=== PATIENT | male | born 2000 | race African-American/Black ===

== ENCOUNTER 2021-11-09 12:39 | Emergency (ER) | payer BC, SELFPAY ==
[2021-11-09 12:59] VITALS: BP 125/78; BP 164/86; PULSE 116; PULSE 58; RESP 18; RESP 20; TEMP 36; TEMP 37.4; O2SAT 100; O2SAT 98; BMI 26.5
--- NOTE | 2021-11-09 13:52 | ED_ITS ---
HPI - Psych General Time Seen by Provider: 13:30 Date Seen: 11/09/21 Chief Complaint: Psychiatric Problem/Disorder Stated Complaint: Mental Health Time Seen by Provider: 11/09/21 13:21 Source: patient, family (Did speak to parents on patient's phone with his permission), RN notes reviewed and old records reviewed Mode of arrival: other (Public safety from [facility]) Limitations: altered mental status History of Present Illness HPI Narrative: Patient is a 21-year-old male that was brought in by Public safety from [facility]. I later learned after talking to his mom on the phone from which the patient handed me that she had called his work ahead of time telling them that he needed to be evaluated in the emergency room. She states she was tamiko deondre to him all weekend long and he was cycling. She could not get him to go get help. His parents are in [place] and he has been here at [facility] at [place]. 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 He was seen in our ER on 04/26/2021 and there was concern of mental health issues at that time, somebody had told him he was bipolar, he was complaining of insomnia. They had an outpatient plan for him. With suspected at that time he was manic or possibly posttraumatic with anxiety. He had significant social flares. At this time he is asking questions with 2 parts to home. For example he will ask do I need a therapist or do I needed dog. He continues to speak like that in its tangential thoughts. He goes and lies up on the counter, lies on the floor. He only wants and he are patient safety sitter and myself in the room at times. He thinks that is teaching in is offering to [facility]. He keeps asking if his phone was charged. He toxin forms of asking questions with the ability to answer 1 of 2 ways. Such as should he get a dog or should he have a therapist, is is phone charged or is not. He talks about his mom not being in healthcare person. He talks about his mom having social anxiety and separation anxiety. I cannot decipher from him if he is hearing voices or hearing things. Cannot get him to answer few suicidal or homicidal but certainly does not seem to be. He is up and agitated moving about the room moving equipment. Heme on lacks the bed and is costing around the room on it. We did get him to put the bed up against the wall where he wanted an got him to put the safety lock back on it. We are not unsafe with him but he is obviously manic/possible psychosis. His mom did remember this bowel in April but is unclear if he has been diagnosed with anything or fees on any chronic psychiatric medications. She does relate to me that she has multiple brothers with bipolar disorder. Patient initially refused to let me examine him or do any blood work/obtain urine. He later did let me examine him before medication. Did not attempt any of the blood work or urine until he had been medicated. MD complaint: altered mental status Onset (ago): unknown Related Data Home Medications Medication Instructions Recorded Confirmed escitalopram oxalate 10 mg tablet 20 mg PO DAILY 11/09/21 11/09/21 hydroxyzine pamoate 25 mg capsule 25 mg PO DAILY 11/09/21 11/09/21 Allergies Allergy/AdvReac Type Severity Reaction Status Date / Time No Known Drug Allergies Allergy Verified 11/09/21 13:09 Review of Systems Status of ROS: Reports: unobtainable due to medical condition and unobtainable due to mental status Exam Const: Vital Signs, click to edit/add: Vital Signs - 24 hr 11/09/21 12:59 11/09/21 16:20 Temperature 99.3 F Pulse Rate [Right Pulse Oximeter] 116 H 58 L Respiratory Rate 20 16 Blood Pressure [Ri ght Upper Arm] 164/86 H Pulse Oximetry 98 96 Documenting provider has reviewed patient's vital signs: yes Common normals: healthy appearing and alert Exam limitations: altered mental status General appearance: well kempt HENMT: Common normals: normocephalic, head/scalp atraumatic, hearing grossly normal bilaterally, external ears normal and external nose normal Head and scalp: normocephalic and atraumatic Nose: external nose normal External ear: external ears normal Eye: Common normals: PERRL, EOMs intact bilaterally, conjunctivae normal and no scleral icterus Conjunctiva: conjunctiva(e) normal Pupil: PERRL Neck & C-Spine: Common normals: full ROM, no lymphadenopathy, supple, no JVD and thyroid normal Thyroid: thyroid normal Resp: Common normals: normal respiratory effort, no retractions, no use of accessory muscles and clear to auscultation bilaterally Auscultation: clear to auscultation bilaterally Cardio: Common normals: no JVD, regular rate, regular rhythm, S1 normal heart sound, S2 normal heart sound, no gallops, no clicks and no murmurs Rate: regular rate Rhythm: regular rhythm Heart sounds: S1 normal and S2 normal Neuro: Sensorium/orientation: alert Psych: Appearance: well kempt Attitude: bizarre (Line on counter, lying on floor) and agitated Activity/motor behavior: psychomotor agitation (Continually moving about the room, changing positions), hyperactive, disorganized and restless Speech: excessive, rapid and other (Speaks in form of questions only) Thought process: disorganized, illogical, tangential and racing thoughts Thought content: other (Just talking mostly in the form of asking questions, not making sense) Insight: poor Judgement: poor Skin: Common normals: no rashes or lesions noted General skin exam: no rashes or lesions noted Course Reevaluation(s) Reevaluation #1: Security came to get me is patient called to see me. When I went in he asked what I wanted. His speech is still tangential he asks questions and then as usual the questions will have in either or that you have to pick. He is talking nonsensically he is lying on the floor when I go in to see him. Speech is pressured. We are waiting the oral Ativan and oral olanzapine from pharmacy. Hopefully he will take those or a fear we may have to try to inject IM. Patient is obviously in a psychotic state. He will need hospitalization. Time: 13:55 Reevaluation #2: Was able to talk the patient into taking the Ativan and the Zyprexa. He took these orally with water, observed him to take them and swallow them. It took about an hour for them to take affect. When patient was talking to his mom it seemed to agitate him a bit more an I did remove his phone from the room as I was talking to his parents. He seemed to tolerate that fine. Short while later I was planning on giving him some Ativan/Haldol/Benadryl. His parents were aware of the plan they understood that he is going to need psychiatric hospitalization which they highly agree with. When I was back in preparing to help staff give him the injections he seemed to be tiring out a bit, speech becoming little slower. He agreed that he would allow blood work and would give us urinalysis. He did do so and we never had to do the Ativan/Benadryl/Haldol. He did fall asleep with the oral Ativan and Zyprexa that were given earlier. He will need psychiatric hospitalization. Have put a consult in for tele health. Time: 14:15 Consultations Consultation #1: Spoke with telehealth, they agree that this gentleman is psychiatrically quite ill. She cannot get suicidality or homicidality out of him but he is quite ill and is either manic or psychotic. Time: 18:30 Vital Signs Vital signs: Initial Vital Signs Temperature 99.3 F 11/09/21 12:59 Temperature Source Temporal Artery Scan 11/09/21 12:59 Pulse Rate 116 H 11/09/21 12:59 Pulse Rhythm 11/09/21 12:59 Respiratory Rate 20 11/09/21 12:59 Blood Pressure 164/86 H 11/09/21 12:59 Blood Pressure Mean 112 11/09/21 12:59 Blood Pressure Position Sitting 11/09/21 12:59 Pulse Oximetry 98 11/09/21 12:59 Oxygen Delivery Method 11/09/21 12:59 Vital Signs Temperature 99.3 F 11/09/21 12:59 Pulse Rate 116 H 11/09/21 12:59 Respiratory Rate 20 11/09/21 12:59 Blood Pressure 164/86 H 11/09/21 12:59 Pulse Oximetry 98 11/09/21 12:59 Temperature 99.3 F 11/09/21 12:59 Pulse Rate 58 L 11/09/21 16:20 Respiratory Rate 16 11/09/21 16:20 Blood Pressure 164/86 H 11/09/21 12:59 Pulse Oximetry 96 11/09/21 16:20 MDM - Psych Lab Data Attestation: I reviewed the patient's lab results. Labs: Lab Results 11/09/21 11/09/21 11/09/21 Range/Units 14:52 15:20 15:21 WBC 8.16 (4.50-11.00) K/uL RBC 5.52 (4.30-5.90) m/uL Hgb 16.6 (13.5-17.5) gm/dL Hct 47.1 (37.0-53.0) % MCV 85 (80-100) fL MCH 30 (26-34) pg MCHC 35 (32-36) gm/dL RDW Coeff of Aria 12.1 (11.5-15.5) % Plt Count 259 (140-440) K/uL Neut % (Auto) 67.9 (42.0-72.0) % Lymph % (Auto) 22.9 (20-44) % [place] % (Auto) 8.6 (0.0-11.0) % Eos % (Auto) 0.1 (0.0-7.0) % Baso % (Auto) 0.4 (0.0-3.0) % Neut # (Auto) 5.54 (1.7-7.0) K/uL Lymph # (Auto) 1.87 (0.90-2.90) K/uL [place] # (Auto) 0.70 (0.00-0.90) K/UL Eos # (Auto) 0.01 (0.00-0.50) K/uL Baso # (Auto) 0.03 (0.00-0.30) K/uL Abs Immat Gran (auto) 0.01 (0.00-0.30) K/uL Sodium (135-149) mmol/L Potassium (3.6-5.1) mmol/L Chloride (96-114) mmol/L Carbon Dioxide (20-32) mmol/L BUN (5-24) mg/dL Creatinine (0.5-1.5) mg/dL Estimated Creat Clear Estimated GFR ml/min Glucose (60-115) mg/dL Calcium (8.4-10.6) mg/dL Total Bilirubin (0.1-1.5) mg/dL AST (12-35) U/L ALT (4-50) U/L Alkaline Phosphatase (40-150) U/L Total Protein (6.0-8.3) g/dL Albumin (3.3-5.0) g/dL TSH (0.270-4.200) uIU/mL Salicylates (1.0-10) mg/dL Urine Opiates Screen Negative (Negative) Ur Oxycodone Screen Negative (Negative) Urine Methadone Screen Negative (Negative) Ur Propoxyphene Screen Negative (Negative) Acetaminophen (10.0-30.0) ug/mL Ur Barbiturates Screen Negative (Negative) U Tricyclic Antidepress Negative (Negative) Ur Phencyclidine Scrn Negative (Negative) Ur Amphetamines Screen Negative (Negative) U Methamphetamines Scrn Negative (Negative) U Benzodiazepines Scrn Negative (Negative) Urine Cocaine Screen Negative (Negative) U Marijuana (THC) Screen Negative (Negative) Ur Drug Screen Comment See Note Ethyl Alcohol (0.01-0.03) % SARS-CoV-2 (PCR) Negative SARS-CoV-2 (Negative) HIV 1&2 Ab/P24 Ag 4thGn (Negative) 11/09/21 11/09/21 11/09/21 Range/Units 15:21 15:21 15:21 WBC (4.50-11.00) K/uL RBC (4.30-5.90) m/uL Hgb (13.5-17.5) gm/dL Hct (37.0-53.0) % MCV (80-100) fL MCH (26-34) pg MCHC (32-36) gm/dL RDW Coeff of Aria (11.5-15.5) % Plt Count (140-440) K/uL Neut % (Auto) (42.0-72.0) % Lymph % (Auto) (20-44) % [place] % (Auto) (0.0-11.0) % Eos % (Auto) (0.0-7.0) % Baso % (Auto) (0.0-3.0) % Neut # (Auto) (1.7-7.0) K/uL Lymph # (Auto) (0.90-2.90) K/uL [place] # (Auto) (0.00-0.90) K/UL Eos # (Auto) (0.00-0.50) K/uL Baso # (Auto) (0.00-0.30) K/uL Abs Immat Gran (auto) (0.00-0.30) K/uL Sodium 139 (135-149) mmol/L Potassium 3.7 (3.6-5.1) mmol/L Chloride 102 (96-114) mmol/L Carbon Dioxide 27 (20-32) mmol/L BUN 16 (5-24) mg/dL Creatinine 1.1 (0.5-1.5) mg/dL Estimated Creat Clear 108.76 Estimated GFR 97 ml/min Glucose 112 (60-115) mg/dL Calcium 9.5 (8.4-10.6) mg/dL Total Bilirubin 0.7 (0.1-1.5) mg/dL AST 28 (12-35) U/L ALT 24 (4-50) U/L Alkaline Phosphatase 81 (40-150) U/L Total Protein 8.4 H (6.0-8.3) g/dL Albumin 5.0 (3.3-5.0) g/dL TSH 1.810 (0.270-4.200) uIU/mL Salicylates < 1.0 L (1.0-10) mg/dL Urine Opiates Screen (Negative) Ur Oxycodone Screen (Negative) Urine Methadone Screen (Negative) Ur Propoxyphene Screen (Negative) Acetaminophen < 10.0 L (10.0-30.0) ug/mL Ur Barbiturates Screen (Negative) U Tricyclic Antidepress (Negative) Ur Phencyclidine Scrn (Negative) Ur Amphetamines Screen (Negative) U Methamphetamines Scrn (Negative) U Benzodiazepines Scrn (Negative) Urine Cocaine Screen (Negative) U Marijuana (THC) Screen (Negative) Ur Drug Screen Comment Ethyl Alcohol < 0.01 L (0.01-0.03) % SARS-CoV-2 (PCR) (Negative) HIV 1&2 Ab/P24 Ag 4thGn (Negative) 11/09/21 Range/Units 15:21 WBC (4.50-11.00) K/uL RBC (4.30-5.90) m/uL Hgb (13.5-17.5) gm/dL Hct (37.0-53.0) % MCV (80-100) fL MCH (26-34) pg MCHC (32-36) gm/dL RDW Coeff of Aria (11.5-15.5) % Plt Count (140-440) K/uL Neut % (Auto) (42.0-72.0) % Lymph % (Auto) (20-44) % [place] % (Auto) (0.0-11.0) % Eos % (Auto) (0.0-7.0) % Baso % (Auto) (0.0-3.0) % Neut # (Auto) (1.7-7.0) K/uL Lymph # (Auto) (0.90-2.90) K/uL [place] # (Auto) (0.00-0.90) K/UL Eos # (Auto) (0.00-0.50) K/uL Baso # (Auto) (0.00-0.30) K/uL Abs Immat Gran (auto) (0.00-0.30) K/uL Sodium (135-149) mmol/L Potassium (3.6-5.1) mmol/L Chloride (96-114) mmol/L Carbon Dioxide (20-32) mmol/L BUN (5-24) mg/dL Creatinine (0.5-1.5) mg/dL Estimated Creat Clear Estimated GFR ml/min Glucose (60-115) mg/dL Calcium (8.4-10.6) mg/dL Total Bilirubin (0.1-1.5) mg/dL AST (12-35) U/L ALT (4-50) U/L Alkaline Phosphatase (40-150) U/L Total Protein (6.0-8.3) g/dL Albumin (3.3-5.0) g/dL TSH (0.270-4.200) uIU/mL Salicylates (1.0-10) mg/dL Urine Opiates Screen (Negative) Ur Oxycodone Screen (Negative) Urine Methadone Screen (Negative) Ur Propoxyphene Screen (Negative) Acetaminophen (10.0-30.0) ug/mL Ur Barbiturates Screen (Negative) U Tricyclic Antidepress (Negative) Ur Phencyclidine Scrn (Negative) Ur Amphetamines Screen (Negative) U Methamphetamines Scrn (Negative) U Benzodiazepines Scrn (Negative) Urine Cocaine Screen (Negative) U Marijuana (THC) Screen (Negative) Ur Drug Screen Comment Ethyl Alcohol (0.01-0.03) % SARS-CoV-2 (PCR) (Negative) HIV 1&2 Ab/P24 Ag 4thGn Negative (Negative) Critical Care Time Critical Care Time Critical Care Time: No Discharge Plan Discharge Clinical Impression: Acute psychosis Patient Disposition: Xfer Psychiatric Hosp Condition: Unchanged Prescriptions: No Action hydroxyzine pamoate 25 mg capsule 25 mg PO DAILY 0RF Label Comments: TAKE 1 TO 2 CAPSULES BY MOUTH EVERY 4 TO 6 HOURS NEEDED FOR ANXIETY escitalopram oxalate 10 mg tablet 20 mg PO DAILY 0RF Label Comments: TAKE 1 TABLET BY MOUTH DAILY Follow Up/Referrals: Provider,Not a Local [Primary Care Provider] - Stand Alone Forms: [employer] Info Instructions
[2021-11-09] MEDS: LORazepam 1 MG TABLET PO (14:15)
[2021-11-09] MEDS: OLANZapine 5 MG TAB.RAPDIS 10 MG PO (14:16)
--- NOTE | 2021-11-09 14:17 | ED.NURSE ---
Pt given 10 mg of Zyprexa po and 1 mg of Ativan po.
[2021-11-09 15:28] LABS: Basophils Absolute Auto 0.03 K/uL (0.00-0.30); Basophils Percent Auto 0.4 % (0.0-3.0); Eosinophils Absolute Auto 0.01 K/uL (0.00-0.50); Eosinophils Percent Auto 0.1 % (0.0-7.0); Hematocrit 47.1 % (37.0-53.0); Hemoglobin* 16.6 gm/dL (13.5-17.5); Immature Granulocytes Abs Auto 0.01 K/uL (0.00-0.30); Lymphocytes Absolute Auto 1.87 K/uL (0.90-2.90); Lymphocytes Percent Auto 22.9 % (20-44); Mean Corpuscular HGB Conc 35 gm/dL (32-36); Mean Corpuscular Hemoglobin 30 pg (26-34); Mean Corpuscular Volume 85 fL (80-100); Monocytes Percent Auto 8.6 % (0.0-11.0); Neutrophils Absolute Auto 5.54 K/uL (1.7-7.0); Neutrophils Percent Auto 67.9 % (42.0-72.0); Platelet Count* 259 K/uL (140-440); RDW Coefficient of Variation % 12.1 % (11.5-15.5); Red Blood Count 5.52 m/uL (4.30-5.90); White Blood Count* 8.16 K/uL (4.50-11.00)
[2021-11-09 15:33] LABS: Slide Review Reflex No
[2021-11-09 15:41] LABS: Chloride* 102 mmol/L (96-114)
[2021-11-09 15:42] LABS: Potassium* 3.7 mmol/L (3.6-5.1); Sodium* 139 mmol/L (135-149)
[2021-11-09 15:44] LABS: Alanine Aminotransferase* 24 U/L (4-50); Alkaline Phosphatase* 81 U/L (40-150); Aspartate Amino Transferase* 28 U/L (12-35); Bilirubin Total* 0.7 mg/dL (0.1-1.5); Blood Urea Nitrogen* 16 mg/dL (5-24); Carbon Dioxide* 27 mmol/L (20-32); Creatinine* 1.1 mg/dL (0.5-1.5); Est. Creatinine Clearance* 108.76; Estimated Glomerular Filt Rate 97 ml/min; Glucose* 112 mg/dL (60-115); Total Protein* 8.4 g/dL (6.0-8.3)
[2021-11-09 15:45] LABS: Calcium* 9.5 mg/dL (8.4-10.6)
[2021-11-09 15:46] LABS: Acetaminophen* < 10.0 ug/mL (10.0-30.0); Ethanol* < 0.01 % (0.01-0.03); Salicylate* < 1.0 mg/dL (1.0-10)
[2021-11-09 15:50] LABS: Amphetamine Screen Urine Negative (Negative); Barbiturate Screen Urine Negative (Negative); Benzodiazepines Screen Urine Negative (Negative); Cannabinoid Screen Urine Negative (Negative); Cocaine Screen Urine Negative (Negative); Methadone Screen Urine Negative (Negative); Methamphetamines Screen Urine Negative (Negative); Opiate Screen Urine Negative (Negative); Oxycodone Screen Urine Negative (Negative); Phencyclidine Screen Urine Negative (Negative); Tricyclic Antidepressant Urine Negative (Negative)
[2021-11-09 16:20] VITALS: PULSE 58; RESP 16; O2SAT 96
--- NOTE | 2021-11-09 16:28 | ED.NURSE ---
dr ac informed that the dec assessment will be done in 1 hour. she is aware that many of the assessments are not done due to his manic phase and inability to answer questions with his agitated type behavior and his need to sleep.
[2021-11-09 16:40] LABS: SARS PCR* Negative SARS-CoV-2 (Negative)
[2021-11-09 17:26] LABS: HIV 1/2/P24 Combo Screen* Negative (Negative)
--- NOTE | 2021-11-09 17:53 | ED.NURSE ---
is speaking to dec quality control assessor via phone, lesly. has flight of ideas. I need a service dog. i need to go home. i can't see. will not answer yes or no questions. very difficult to get assessments done.
--- NOTE | 2021-11-09 21:05 | PC.SOCIAL ---
Called [facility] placement at [phone]. Provided initial information by phone and faxed referral packet for evaluation for admit. Requested call back to RN with decision on admit.
--- NOTE | 2021-11-09 22:06 | ED.NURSE ---
wants to go home. dr ac in to talk to him about plan. is om a 72 hr hold. [facility] is looking at him.
[2021-11-09 22:21] VITALS: BP 145/109; PULSE 58; RESP 18; TEMP 36; O2SAT 100
--- NOTE | 2021-11-10 00:34 | ED.NURSE ---
pt. sleeping at this time. vitals stable. inpatient psyc pending.
--- NOTE | 2021-11-10 01:23 | ED.NURSE ---
information faxed to [facility] for possible placement.
[2021-11-10 06:21] VITALS: BP 142/96; PULSE 65; RESP 18; TEMP 36.6; O2SAT 100
--- NOTE | 2021-11-10 06:29 | ED.NURSE ---
pt. stated he would like to go home. pt. is very calm. thoughts are together and clear. understands why he is here. will talk md.
[2021-11-10 07:27] VITALS: BP 125/72; PULSE 55; RESP 18; TEMP 36.1; O2SAT 100
--- NOTE | 2021-11-10 07:29 | ED.NURSE ---
is speaking clearly and cooperative. asked the where abouts of his wallet and keys. was told they are in safe keeping in the med room. will be re evaluated by DEC per order of dr elizabeth.
[2021-11-10] MEDS: OLANZapine 5 MG TAB.RAPDIS 10 MG PO (09:50)
[2021-11-10] MEDS: LORazepam 1 MG TABLET PO (09:50)
--- NOTE | 2021-11-10 09:51 | ED.NURSE ---
was asking for ativan. did give olanzapine 10 mg and ativan 1 mg po.
--- NOTE | 2021-11-10 13:47 | PC.SOCIAL ---
Social work: Earlier today, faxed information to [facility] for evaluation for admit. Called and confirmed receipt of fax. [facility] intake ([phone]) to call ED nurse with clinical questions and decision on admit.
--- NOTE | 2021-11-10 15:08 | ED.NURSE ---
is wanting to go home. was informed that he has a 72 hr hold. rights were reread to him and copies given to him for reference. mother was updated about plan. she thought that we should be looking at a place in [place]. was told logistically this would not be possible.
[2021-11-10 15:20] VITALS: BP 134/61; PULSE 60; RESP 18; TEMP 36.5; O2SAT 99
== END 2021-11-10 16:40 ==
PROVIDERS: Family Medicine; Emergency Provider Emergency Medicine
DX: F23 Brief psychotic disorder (principal)
CPT/HCPCS: 36415; 80053; 80143; 80179; 80306; 82077; 84443; 85025; 86703; 87635; 96372; 99284; 99285; A9270